=== PATIENT | male | born 1945 | race Caucasian/White ===

== ENCOUNTER 2017-12-06 21:13 | Emergency (ER) | payer OTHER ==
[~2017-12-06] VITALS: Ht 172.7 cm; Wt 99.8 kg
[2017-12-06] MEDS ORDERED: RAMIPRIL5 MG (21:23)
[2017-12-06] MEDS ORDERED: LOSARTAN POTAS100 MG (21:23)
[2017-12-06] MEDS ORDERED: JANUMET XR 50-1 EAC1 (21:24)
[2017-12-06] MEDS ORDERED: DICLOFENAC SODI50 MG (21:25)
[2017-12-06] MEDS ORDERED: NORTEMP80 MG/0.8 (21:25)
[2017-12-06] MEDS ORDERED: NORFLEX100MG (21:26)
[2017-12-06] MEDS ORDERED: AMLODIPINE BESYL5 MG (21:26)
== END 2017-12-07 06:06 | disposition home or self-care (01) ==
LOC: ER 21:13 → CPU-OBS 21:25 → ER 21:25
DX: I10 Essential (primary) hypertension (principal); R07.89 Other chest pain